=== PATIENT | female | born 1950 | race Caucasian/White ===

== ENCOUNTER 2017-03-12 11:45 | Inpatient (IN) | payer OTHER ==
[~2017-03-12] VITALS: Ht 175.3 cm; Wt 69.4 kg
[2017-03-12 11:53] VITALS: BP 192/108
[2017-03-12] MEDS ORDERED: MORPHINE SULFATE 10 MG/ML SYR IVP ONE ×2 (12:00→12:35)
[2017-03-12] MEDS ORDERED: NACL 0.9% 500 ML IV SCH ×2 (12:00→12:32)
[2017-03-12] MEDS ORDERED: ONDANSETRON 4 MG/2 ML VIAL IVP ONE ×3 (12:00→13:30)
[2017-03-12] MEDS ORDERED: HYDROmorphone 1 MG/ML AMP IVP ONE ×3 (12:20→15:05)
[2017-03-12] MEDS ORDERED: HYDROmorphone 1 MG/ML AMP ONE (12:24)
[2017-03-12 12:42] LABS: BASOPHILS # (AUTO) 0.2 K/uL (0.00-0.22); BASOPHILS % (AUTO) 2.7 % (0.0-2.0); EOSINOPHILS # (AUTO) 0.2 K/uL (0-0.4); EOSINOPHILS % (AUTO) 1.9 % (0.0-4.0); HEMATOCRIT 43.7 % (36-48); HEMOGLOBIN 14.6 g/dL (12.0-16.0); LYMPHOCYTES # (AUTO) 3.5 K/uL (2.5-16.5); LYMPHOCYTES % (AUTO) 40.5 % (20.5-51.1); MEAN CORPUSCULAR HEMOGLOBIN 29 pg (27-31); MEAN CORPUSCULAR HGB CONC 33 g/dL (33-37); MEAN CORPUSCULAR VOLUME 88 fL (80-94); MONOCYTES # (AUTO) 0.6 K/uL (0.8-1.0); MONOCYTES % (AUTO) 7.4 % (1.7-9.3); NEUTROPHILS # (AUTO) 4.1 K/uL (1.8-7.7); NEUTROPHILS % (AUTO) 47.5 % (42.2-75.2); PLATELET COUNT (AUTO) 225 K/uL (140-450); WHITE BLOOD COUNT (AUTO) 8.6 K/uL (4.8-10.8)
[2017-03-12 12:46] LABS: ANION GAP 15.5 (8-16); CALCIUM 8.7 mg/dL (8.5-10.1); CARBON DIOXIDE 24.8 mmol/L (21-32); POTASSIUM 3.3 mmol/L (3.5-5.1)
[2017-03-12 12:52] LABS: TOTAL BILIRUBIN 0.6 mg/dL (0.0-1.0); TOTAL PROTEIN, SERUM 7.9 g/dL (6.4-8.2)
[2017-03-12 13:35] LABS: APPEARANCE,URINE SL CLOUDY (CLEAR); BILIRUBIN,URINE NEGATIVE (NEGATIVE); BLOOD, URINE 3+ (NEGATIVE); COLOR,URINE YELLOW (YELLOW); LEUKOCYTE ESTERASE ,URINE NEGATIVE (NEGATIVE); NITRITE, URINE NEGATIVE (NEGATIVE); PROTEIN,URINE NEGATIVE (NEGATIVE); UGLUCOSE NEGATIVE (NEGATIVE); UROBILINOGEN,URINE 0.2 EU/dL (0.2 - 1)
[2017-03-12 13:43] LABS: BACTERIA,URINE OCCASSIONAL /HPF (None Seen); RBC,URINE 50-80 /HPF (0-5); SQUAMOUS EPITHELIAL CELL,UR 0-3 (FEW) /LPF (0-3 (FEW)); WBC,URINE 0-5 (RARE) /HPF (0-5)
[2017-03-12 13:51] LABS: PARTIAL THROMBOPLASTIN TIME 21.4 secs (22-35.6); PROTHROMBIN TIME 10.4 secs (10.8-13.4)
[2017-03-12] MEDS ORDERED: PAM25 PO (13:53)
[2017-03-12] MEDS ORDERED: TRAZ-286 PO (13:53)
[2017-03-12] MEDS ORDERED: AMLO10TA PO (13:53)
[2017-03-12] MEDS ORDERED: ACETAMINOPHEN 325 MG TAB PO PRN (15:00)
[2017-03-12] MEDS ORDERED: LORazepam 2 MG/ML VIAL IVP PRN (15:00)
[2017-03-12] MEDS ORDERED: ONDANSETRON 4 MG/2 ML VIAL IVP PRN (15:00)
[2017-03-12] MEDS ORDERED: PROMETHAZINE 25 MG/ML VIAL IVP ONE (15:05)
[2017-03-12 15:40] VITALS: BP 192/108
[2017-03-12] MEDS: cloNIDine 0.1 MG TAB PO PRN (16:01)
[2017-03-12] MEDS: NACL 0.9% 1,000 ML IV SCH (16:01)
[2017-03-12] MEDS: HYDROmorphone 1 MG/ML AMP IVP PRN ×2 (17:33→21:41)
[2017-03-12 17:37] VITALS: BP 173/95
[2017-03-12 20:00] VITALS: BP 176/109
[2017-03-12] MEDS ORDERED: diphenhydrAMINE 50 MG CAP PO PRN (22:00)
[2017-03-13] VITALS: BP 152/85
[2017-03-13 04:00] VITALS: BP 179/100
[2017-03-13] MEDS: HYDROcodone/APAP 5/325 MG 1 TAB TAB PO PRN ×3 (04:03→14:59)
[2017-03-13] MEDS: cloNIDine 0.1 MG TAB PO PRN ×2 (04:13→21:28)
[2017-03-13] MEDS: NACL 0.9% 1,000 ML IV SCH ×2 (04:28→18:02)
[2017-03-13 05:42] LABS: BASOPHILS # (AUTO) 0.1 K/uL (0.00-0.22); BASOPHILS % (AUTO) 0.6 % (0.0-2.0); EOSINOPHILS # (AUTO) 0.2 K/uL (0-0.4); EOSINOPHILS % (AUTO) 1.3 % (0.0-4.0); HEMATOCRIT 38.2 % (36-48); HEMOGLOBIN 12.4 g/dL (12.0-16.0); LYMPHOCYTES # (AUTO) 2.2 K/uL (2.5-16.5); LYMPHOCYTES % (AUTO) 18.6 % (20.5-51.1); MEAN CORPUSCULAR HEMOGLOBIN 29 pg (27-31); MEAN CORPUSCULAR HGB CONC 33 g/dL (33-37); MEAN CORPUSCULAR VOLUME 89 fL (80-94); MONOCYTES # (AUTO) 0.9 K/uL (0.8-1.0); MONOCYTES % (AUTO) 8.1 % (1.7-9.3); NEUTROPHILS # (AUTO) 8.2 K/uL (1.8-7.7); NEUTROPHILS % (AUTO) 71.4 % (42.2-75.2); PLATELET COUNT (AUTO) 209 K/uL (140-450); RED BLOOD CELL COUNT(AUTO) 4.29 MIL/uL (4.20-5.40); RED CELL DISTRIBUTION WIDTH 12.9 % (11.6-13.7); WHITE BLOOD COUNT (AUTO) 11.6 K/uL (4.8-10.8)
[2017-03-13 06:10] LABS: ALBUMIN 3.2 g/dL (3.4-5.0); CALCIUM 8.1 mg/dL (8.5-10.1); CARBON DIOXIDE 27.3 mmol/L (21-32); CREATININE 1.5 mg/dL (0.6-1.3); MAGNESIUM 1.7 mg/dL (1.8-2.4); POTASSIUM 3.3 mmol/L (3.5-5.1); TOTAL BILIRUBIN 0.6 mg/dL (0.0-1.0); TOTAL PROTEIN, SERUM 6.5 g/dL (6.4-8.2)
[2017-03-13 08:00] VITALS: BP 127/78
[2017-03-13] MEDS: traZODone 50 MG TAB PO SCH (08:22)
[2017-03-13] MEDS: ENOXAPARIN 40 MG/0.4 ML SYR SUBQ SCH (08:25)
[2017-03-13] MEDS ORDERED: MORPHINE SULFATE 2 MG/ML SYR IVP PRN (08:45)
[2017-03-13] MEDS ORDERED: POTASSIUM CHLORIDE 10 MEQ TABER PO SCH (08:51)
[2017-03-13] MEDS ORDERED: amLODIPine 5 MG TAB PO SCH (09:00)
[2017-03-13] MEDS ORDERED: MAG SULF 2000 MG/WATER PREMIX 100 ML IV SCH (09:00)
[2017-03-13] MEDS: NIFEdipine 60 MG TABER PO SCH (09:33)
[2017-03-13 12:00] VITALS: BP 144/84
[2017-03-13] MEDS: MORPHINE SULFATE 4 MG/ML SYR IVP PRN ×3 (12:05→21:32)
[2017-03-13 16:00] VITALS: BP 146/86
[2017-03-13 20:00] VITALS: BP 161/87
[2017-03-14] VITALS: BP 145/91
[2017-03-14 00:08] VITALS: BP 145/91
[2017-03-14 05:49] LABS: BASOPHILS # (AUTO) 0.1 K/uL (0.00-0.22); BASOPHILS % (AUTO) 0.7 % (0.0-2.0); EOSINOPHILS # (AUTO) 0.1 K/uL (0-0.4); EOSINOPHILS % (AUTO) 1.3 % (0.0-4.0); HEMATOCRIT 38.1 % (36-48); HEMOGLOBIN 12.8 g/dL (12.0-16.0); LYMPHOCYTES % (AUTO) 17.5 % (20.5-51.1); MEAN CORPUSCULAR HEMOGLOBIN 30 pg (27-31); MEAN CORPUSCULAR HGB CONC 34 g/dL (33-37); MEAN CORPUSCULAR VOLUME 88 fL (80-94); MONOCYTES # (AUTO) 1.1 K/uL (0.8-1.0); MONOCYTES % (AUTO) 9.6 % (1.7-9.3); NEUTROPHILS % (AUTO) 70.9 % (42.2-75.2); PLATELET COUNT (AUTO) 191 K/uL (140-450); RED BLOOD CELL COUNT(AUTO) 4.32 MIL/uL (4.20-5.40); WHITE BLOOD COUNT (AUTO) 11.3 K/uL (4.8-10.8)
[2017-03-14 06:08] LABS: ANION GAP 10.6 (8-16); CALCIUM 8.1 mg/dL (8.5-10.1); CARBON DIOXIDE 26.9 mmol/L (21-32); CREATININE 1.2 mg/dL (0.6-1.3); POTASSIUM 3.5 mmol/L (3.5-5.1)
[2017-03-14] MEDS: NACL 0.9% 1,000 ML IV SCH (06:26)
[2017-03-14] MEDS: MORPHINE SULFATE 4 MG/ML SYR IVP PRN (06:57)
[2017-03-14] MEDS: traZODone 50 MG TAB PO SCH (08:07)
[2017-03-14] MEDS: NIFEdipine 60 MG TABER PO SCH (08:07)
[2017-03-14] MEDS: ENOXAPARIN 40 MG/0.4 ML SYR SUBQ SCH (08:10)
[2017-03-14 08:36] VITALS: BP 140/75
[2017-03-14] MEDS ORDERED: TAMSULOSIN 0.4 MG CAP PO SCH (08:53)
[2017-03-14] MEDS: NACL 0.45% 1,000 ML IV SCH (09:31)
[2017-03-14] MEDS: NORTRIPTYLINE 25 MG CAP PO SCH (09:31)
[2017-03-14] MEDS: oxyCODONE/APAP 5/325 MG 1 TAB TAB PO PRN ×3 (10:13→20:05)
[2017-03-14 16:00] VITALS: BP 139/81
[2017-03-15] VITALS: BP 143/81
[2017-03-15] MEDS: NACL 0.45% 1,000 ML IV SCH (05:10)
[2017-03-15 06:14] LABS: ANION GAP 13.2 (8-16); CALCIUM 8.5 mg/dL (8.5-10.1); CARBON DIOXIDE 26.7 mmol/L (21-32); CREATININE 0.6 mg/dL (0.6-1.3)
[2017-03-15 06:15] LABS: POTASSIUM 2.9 mmol/L (3.5-5.1)
[2017-03-15 06:19] LABS: BASOPHILS # (AUTO) 0.2 K/uL (0.00-0.22); EOSINOPHILS # (AUTO) 0.1 K/uL (0-0.4); EOSINOPHILS % (AUTO) 1.1 % (0.0-4.0); HEMATOCRIT 37.8 % (36-48); HEMOGLOBIN 12.9 g/dL (12.0-16.0); LYMPHOCYTES # (AUTO) 2.2 K/uL (2.5-16.5); MEAN CORPUSCULAR HEMOGLOBIN 30 pg (27-31); MEAN CORPUSCULAR HGB CONC 34 g/dL (33-37); MEAN CORPUSCULAR VOLUME 87 fL (80-94); MONOCYTES # (AUTO) 0.8 K/uL (0.8-1.0); MONOCYTES % (AUTO) 8.9 % (1.7-9.3); NEUTROPHILS # (AUTO) 5.8 K/uL (1.8-7.7); PLATELET COUNT (AUTO) 200 K/uL (140-450); RED BLOOD CELL COUNT(AUTO) 4.32 MIL/uL (4.20-5.40); RED CELL DISTRIBUTION WIDTH 12.6 % (11.6-13.7); WHITE BLOOD COUNT (AUTO) 9.1 K/uL (4.8-10.8)
[2017-03-15] MEDS ORDERED: POTASSIUM CHLORIDE 60 MEQ, LIDOCAINE 1% 25 MG in NACL 0.9% 250 ML IV SCH (06:25)
[2017-03-15] MEDS: MORPHINE SULFATE 4 MG/ML SYR IVP PRN (07:56)
[2017-03-15] MEDS: traZODone 50 MG TAB PO SCH (07:59)
[2017-03-15] MEDS: TAMSULOSIN 0.4 MG CAP PO SCH (07:59)
[2017-03-15] MEDS: NORTRIPTYLINE 25 MG CAP PO SCH (07:59)
[2017-03-15 08:00] VITALS: BP 130/74
[2017-03-15] MEDS: NIFEdipine 60 MG TABER PO SCH (08:00)
[2017-03-15] MEDS: oxyCODONE/APAP 5/325 MG 1 TAB TAB PO PRN ×3 (08:50→22:26)
[2017-03-15] MEDS: ENOXAPARIN 40 MG/0.4 ML SYR SUBQ SCH (08:58)
[2017-03-15] MEDS ORDERED: POTASSIUM CHLORIDE 60 MEQ, LIDOCAINE 1% 25 MG in NACL 0.9% 500 ML IV SCH (09:00)
[2017-03-15] MEDS ORDERED: HYDROmorphone 1 MG/ML AMP IVP SCH (11:10)
[2017-03-15] MEDS ORDERED: HYDROmorphone 1 MG/ML AMP IVP PRN ×2 (11:25→11:44)
[2017-03-15] MEDS: oxyCODONE 5 MG TAB PO SCH ×2 (12:18→21:31)
[2017-03-15 15:44] VITALS: BP 149/85
[2017-03-15] MEDS: ALUMINUM HYD/MAG/SIMETHICONE 30 ML UDC PO PRN ×2 (16:00→22:26)
[2017-03-16] VITALS: BP 148/79
[2017-03-16] MEDS: NACL 0.45% 1,000 ML IV SCH (01:00)
[2017-03-16] MEDS: oxyCODONE 5 MG TAB PO SCH ×2 (05:00→12:28)
[2017-03-16 05:46] LABS: BASOPHILS # (AUTO) 0.2 K/uL (0.00-0.22); BASOPHILS % (AUTO) 2.4 % (0.0-2.0); EOSINOPHILS # (AUTO) 0.1 K/uL (0-0.4); EOSINOPHILS % (AUTO) 1.6 % (0.0-4.0); HEMATOCRIT 38.7 % (36-48); HEMOGLOBIN 13.1 g/dL (12.0-16.0); LYMPHOCYTES # (AUTO) 2.6 K/uL (2.5-16.5); LYMPHOCYTES % (AUTO) 35.3 % (20.5-51.1); MEAN CORPUSCULAR HEMOGLOBIN 30 pg (27-31); MEAN CORPUSCULAR HGB CONC 34 g/dL (33-37); MEAN CORPUSCULAR VOLUME 88 fL (80-94); MONOCYTES # (AUTO) 0.8 K/uL (0.8-1.0); NEUTROPHILS # (AUTO) 3.7 K/uL (1.8-7.7); NEUTROPHILS % (AUTO) 49.7 % (42.2-75.2); PLATELET COUNT (AUTO) 240 K/uL (140-450); RED CELL DISTRIBUTION WIDTH 12.5 % (11.6-13.7); WHITE BLOOD COUNT (AUTO) 7.4 K/uL (4.8-10.8)
[2017-03-16 06:32] LABS: ANION GAP 13.8 (8-16); CALCIUM 8.6 mg/dL (8.5-10.1); CARBON DIOXIDE 27.2 mmol/L (21-32); CREATININE 0.7 mg/dL (0.6-1.3)
[2017-03-16 08:00] VITALS: BP 126/67
[2017-03-16] MEDS: TAMSULOSIN 0.4 MG CAP PO SCH (08:30)
[2017-03-16] MEDS: traZODone 50 MG TAB PO SCH (09:00)
[2017-03-16] MEDS: NIFEdipine 60 MG TABER PO SCH (09:00)
[2017-03-16] MEDS: ENOXAPARIN 40 MG/0.4 ML SYR SUBQ SCH (09:00)
[2017-03-16] MEDS ORDERED: PANTOPRAZOLE 40 MG INJ VIAL IVP SCH (09:00)
[2017-03-16] MEDS: NORTRIPTYLINE 25 MG CAP PO SCH (09:00)
[2017-03-16] MEDS ORDERED: ACET-9494 PO (09:42)
[2017-03-16] MEDS ORDERED: POTASSIUM CHLORIDE 40 MEQ, LIDOCAINE 1% 25 MG in NACL 0.9% 250 ML IV SCH (11:00)
[2017-03-16] MEDS ORDERED: PROPOFOL 200 MG/20 ML VIAL IV ONE (13:49)
[2017-03-16] MEDS ORDERED: LIDOCAINE 2% 100 MG/5 ML SYR IVP ONE (13:49)
[2017-03-16] MEDS ORDERED: SEVOFLURANE 250 ML BTL INH ONE (13:49)
[2017-03-16] MEDS ORDERED: fentaNYL 0.05 MG/ML VIAL ONE (14:06)
[2017-03-16] MEDS ORDERED: MIDAZOLAM 2 MG/2 ML VIAL ONE (14:07)
[2017-03-16] MEDS ORDERED: HYDROmorphone 1 MG/ML AMP IVP PRN (14:25)
[2017-03-16] MEDS ORDERED: ONDANSETRON 4 MG/2 ML VIAL IVP PRN (14:25)
[2017-03-16] MEDS ORDERED: HYDROmorphone PFS 2 MG/ML SYR ONE (15:38)
[2017-03-16 16:00] VITALS: BP 147/92
[2017-03-16] MEDS ORDERED: PNEUMOCOCCAL VACCINE 23 MCG/0.5 ML VIAL IMVAC SCH (17:35)
== END 2017-03-16 21:20 | disposition home or self-care (01) | DRG 694 ==
LOC: MED 11:45 → MTU 15:04
PROVIDERS: ADMIT Hospitalist; ATTEND Hospitalist
PROC: BT1F1ZZ Fluoroscopy of Left Kidney, Ureter and Bladder using Low Osmolar Contrast (ICD-10-PCS; principal; 2017-03-16 14:00)
PROC: 0T778DZ Dilation of Left Ureter with Intraluminal Device, Via Natural or Artificial Opening Endoscopic (ICD-10-PCS; 2017-03-16 14:00)
DX: N13.2 Hydronephrosis with renal and ureteral calculous obstruction (principal); N17.9 Acute kidney failure, unspecified; I10 Essential (primary) hypertension; M79.7 Fibromyalgia; G43.909 Migraine, unspecified, not intractable, without status migrainosus; M19.90 Unspecified osteoarthritis, unspecified site; F12.10 Cannabis abuse, uncomplicated; M54.9 Dorsalgia, unspecified; E86.0 Dehydration; G89.29 Other chronic pain; Z90.49 Acquired absence of other specified parts of digestive tract; Z88.8 Allergy status to other drugs, medicaments and biological substances; Z90.710 Acquired absence of both cervix and uterus
CPT/HCPCS: 36415; 71010; 76770; 80048; 80053; 81001; 82150; 82553; 83690; 83735; 83880; 84484; 85025; 85610; 85651; 85730; 86140; 87081; 90732; 93005; 96374; 96375; 96376; 99285; C1758; C1769; C2617; C9113; J1170; J1650; J2001; J2060; J2250; J2270; J2405; J2550; J2704; J3010; J3475; J3480; J7030; Q0092; Q0163